=== PATIENT | male | born 1940 | race Caucasian/White ===

== ENCOUNTER → 2016-10-11 | Outpatient (CLI) | payer OTHER ==
[2016-10-11 12:57] LABS: BASO % 0.8 %; BASO ABS # 0.05 K/uL (0-0.2); COMPLETE YES; EOS % 2.4 %; HEMATOCRIT 46.3 % (42-52); LYMPH % 31.2 %; LYMPH ABS # 1.92 K/uL (1.2-3.4); MEAN CORPUSCULAR HGB CONC 35.9 g/dl (32-36); MEAN PLATELET VOLUME 10.6 fL (7.4-10.4); MONO % 11.2 %; NEUT % 54.4 %; PLATELET COUNT 232 K/uL (130-400); RED BLOOD COUNT 5.03 M/uL (4.7-6.1); WHITE BLOOD COUNT 6.15 K/uL (4.8-10.8)
[2016-10-11 13:34] LABS: ALT/SGPT 34 U/L (12-78); AST/SGOT 26 U/L (15-37); BLOOD UREA NITROGEN 20 mg/dl (7-18); BUN/CREATININE RATIO 19.8 (10-20); CALCIUM 9.3 mg/dl (8.5-10.1); CARBON DIOXIDE 27 mmol/L (21-32); CHLORIDE 106 mmol/L (98-107); GLUCOSE 100 mg/dl (70-99); POTASSIUM 4.3 mmol/L (3.5-5.1); SODIUM 139 mmol/L (136-145)
[2016-10-11 13:41] LABS: ALB/GLOB RATIO 1.1 (0.9-2); ALKALINE PHOSPHATASE 45 U/L (45-117); CHOLESTEROL 181 mg/dl (0-200); CHOLESTEROL/HDL RATIO 4.2; HDL CHOLESTEROL 43 mg/dl; LDL CHOLESTEROL CALCULATED 102 mg/dl; TRIGLYCERIDES 182 mg/dl (0-150); VERY LOW DENSITY LIPOPROT CALC 36 mg/dl
== END | disposition home or self-care (01) ==
LOC: C.LABMFLN 07:54
PROVIDERS: ATTEND Family Medicine
DX: I10 Essential (primary) hypertension (principal); E78.5 Hyperlipidemia, unspecified

== ENCOUNTER → 2017-04-03 | Outpatient (CLI) | payer OTHER | END | disposition home or self-care (01) | LOC: C.PATHSPEC 16:36 | PROVIDERS: ATTEND Dermatology | DX: L81.4 Other melanin hyperpigmentation (principal); L57.0 Actinic keratosis; C44.619 Basal cell carcinoma of skin of left upper limb, including shoulder ==

== ENCOUNTER → 2017-10-03 | Outpatient (CLI) | payer OTHER | END | disposition home or self-care (01) | LOC: C.PATHSPEC 16:47 | PROVIDERS: ATTEND Dermatology | DX: B07.9 Viral wart, unspecified (principal) ==

== ENCOUNTER → 2017-10-08 | Outpatient (CLI) | payer OTHER ==
[2017-10-08 12:51] LABS: BASO % 0.2 %; BASO ABS # 0.01 K/uL (0-0.2); EOS % 1.4 %; EOS ABS # 0.07 K/uL (0-0.5); HEMATOCRIT 44.6 % (42-52); HEMOGLOBIN 16.3 g/dL (14.0-18.0); IG# 0.01 K/uL (0.00-0.02); LYMPH % 31.5 %; MEAN CELL VOLUME 93.1 fL (80-100); MEAN CORPUSCULAR HGB CONC 36.5 g/dl (32-36); MEAN PLATELET VOLUME 10.6 fL (7.4-10.4); MONO % 13.2 %; MONO ABS # 0.67 K/uL (0.11-0.59); NEUT % 53.5 %; NEUT ABS # 2.72 K/uL (1.4-6.5); PLATELET COUNT 212 K/uL (130-400); RED CELL DISTRIBUTION WIDTH CV 12.4 % (11.5-14.5); RED CELL DISTRIBUTION WIDTH SD 41.6 fL (36.4-46.3); WHITE BLOOD COUNT 5.08 K/uL (4.8-10.8)
[2017-10-08 14:29] LABS: ALBUMIN 3.6 gm/dl (3.4-5.0); ALT/SGPT 36 U/L (12-78); AST/SGOT 34 U/L (15-37); BLOOD UREA NITROGEN 20 mg/dl (7-18); CALCIUM 8.7 mg/dl (8.5-10.1); CARBON DIOXIDE 26 mmol/L (21-32); CREATININE 1.08 mg/dl (0.60-1.40); GLUCOSE 97 mg/dl (70-99); POTASSIUM 3.8 mmol/L (3.5-5.1); SODIUM 133 mmol/L (136-145)
[2017-10-08 14:40] LABS: ALKALINE PHOSPHATASE 52 U/L (45-117); CHOLESTEROL 104 mg/dl (0-200); LDL CHOLESTEROL CALCULATED 50 mg/dl; TOTAL PROTEIN 7.7 gm/dl (6.4-8.2)
== END | disposition home or self-care (01) ==
LOC: C.LABMFLN 08:34
PROVIDERS: ATTEND Family Medicine
DX: I10 Essential (primary) hypertension (principal); E78.5 Hyperlipidemia, unspecified

== ENCOUNTER 2020-10-18 08:03 | Inpatient (IN) ==
--- NOTE | 2020-09-30 15:10 | PAT Medication Instructions ---
Medication Instructions Date of Service September 30, 2020 Home Medications Medication Instructions Recorded atenolol 50 mg tablet 50 mg PO DAILY #90 tab 09/22/19 triamterene 37.5 0.5 tab PO DAILY #45 tab 11/12/19 mg-hydrochlorothiazide 25 mg tablet doxycycline hyclate 50 mg capsule 50 mg PO Q OTHER DAY #45 cap 05/03/20 gabapentin 400 mg capsule 400 mg PO TID #270 cap 09/30/20 atenolol 50 mg tablet 50 mg PO DAILY triamterene 37.5 mg-hydrochlorothiazide 25 mg tablet 0.5 tab PO DAILY doxycycline hyclate 50 mg capsule 50 mg PO Q OTHER DAY gabapentin 400 mg capsule 400 mg PO TID multivitamin 1 tab PO QAM DO NOT take the morning of surgery triamterene 37.5 mg-hydrochlorothiazide 25 mg tablet 0.5 tab PO DAILY doxycycline hyclate 50 mg capsule 50 mg PO Q OTHER DAY multivitamin 1 tab PO QAM Take morning of surgery With a small sip of water, OTHERWISE NOTHING TO EAT OR DRINK AFTER MIDNIGHT: atenolol 50 mg tablet 50 mg PO DAILY gabapentin 400 mg capsule 400 mg PO TID Take evening before surgery gabapentin 400 mg capsule 400 mg PO TID Other Notes If you have any questions please call us at [phone] or [phone] or [phone] or [phone]
--- NOTE | 2020-10-04 12:56 | Anesthesiology Consultation ---
Date of Service October 04, 2020 Assessment & Plan (1) Encounter for pre-operative examination: COVID Status: As of 10/04 assessment, patient denies travel to endemic area, known exposure/sick contacts, or symptoms of COVID19. Patient instructed that they and their household members must follow strict social distancing guidelines, wear a mask in public and avoid travel/events/gatherings for 14 days prior to surgery. Preoperative COVID19 testing to be completed prior to surgery per surgeon's arrangements (pt aware). Patient made aware to self-isolate as much as possible between COVID testing and surgery. Pt is fully vaccinated. Chart Review Chart Review: Acceptable Risk for Surgery (pending cardiology clearance/echo) and Patient seen in Pre Admission Testing Teaching & Discussion Instructed NPO after midnight before surgery, except medications with 15 cc of water. Medication instructions provided according to the PAT guidelines. History Surgery Operation Date: 10/18/20 12:25 Proposed Procedures p L3-S1 Decompression Fusion, Spinal Cord Monitoring - Yonathan Dumont, Height/Weight Height: 5 ft 10 in Weight: 114.2 kg Allergies Allergy/AdvReac Type Severity Reaction Status Date / Time No Known Drug Allergies Allergy Uncoded 09/30/20 11:30 Medications Home Medications Medication Instructions Recorded Confirmed Last Taken atenolol 50 mg tablet 50 mg PO DAILY #90 tab 09/22/19 09/30/20 Unknown triamterene 37.5 0.5 tab PO DAILY #45 tab 11/12/19 09/30/20 Unknown mg-hydrochlorothiazide 25 mg tablet doxycycline hyclate 50 mg capsule 50 mg PO Q OTHER DAY #45 cap 05/03/20 09/30/20 Unknown gabapentin 400 mg capsule 400 mg PO TID #270 cap 09/30/20 Unknown multivitamin 1 tab PO QAM 09/30/20 09/30/20 Unknown Past Medical History Medical History Acid reflux Ankylosing spondylitis Was previously on medication but discontinued when symptoms improved, has not been treated for 30yrs. Arthritis Benign essential hypertension Erectile dysfunction History of basal cell carcinoma Hx of glaucoma LBBB (left bundle branch block) Lumbar stenosis with neurogenic claudication Obstructive sleep apnea NO DEVICE CURRENTLY USED Rosacea Exercise / Class Metabolic Activity II 4-5 Yardwork/Stairs/Walk up hill (Does stairs at work, no limiting dyspnea, no chest pain, limited by leg pain/weakness) Past Family History Family History Sister Colorectal cancer Father Coronary heart disease Brother Esophageal cancer Family history of diabetes mellitus Other No family history of adverse response to anesthesia Past Surgical History Surgical History History of carpal tunnel release RT/LEFT History of cataract surgery RT/LEFT History of colonoscopy History of tooth extraction Hx of vasectomy Past Anesthesia History No Hx of Anesthesia Complications and No Family Hx of Anesthesia Complications History of PONV No Hx of PONV and No Hx of Motion Sickness Social History Smoking Status: Never smoker tobacco type: smokeless tobacco Do You Dip or Chew Tobacco: No (QUIT "YEARS AGO") Hx Alcohol Use: Yes alcohol intake frequency: holidays/special occasions only Hx Substance Use: No Review of Systems Pt denies any recent chest pain, shortness of breath, palpitations, cough, fever, URI, or uncontrolled acid reflux. Physical Exam Vital Signs BP: 162/90 P: 71bpm SPO2: 94% RA T: 98.0 F R: 16 ENMT Mouth: + dentures and + edentulous Thyromental Distance: > or= 3.5 Finger Breadths Mallampati Class: II Neck + thick neck; neck extension not limited Respiratory normal respiratory effort, lungs clear to auscultation + prolonged expiratory phase Cardiovascular RRR, no murmur, no edema Distant heart sounds. Testing Laboratory Results 10/04/20 13:08 10/04/20 13:08 PT 10.3 Seconds (9.0-12.0) 10/04/20 13:08 INR 1.0 (0.9-1.1) 10/04/20 13:08 APTT 28.5 Seconds (21.0-31.0) 10/04/20 13:08 Urine Color Yellow 10/04/20 13:08 Urine Appearance Clear (Clear) 10/04/20 13:08 Urine pH 6.0 (4.5-7.5) 10/04/20 13:08 Ur Specific Debary 1.017 (1.000-1.030) 10/04/20 13:08 Urine Protein Negative (Negative) 10/04/20 13:08 Urine Glucose (UA) Negative (Negative) 10/04/20 13:08 Urine Ketones Negative (Negative) 10/04/20 13:08 Urine Nitrite Negative (Negative) 10/04/20 13:08 Ur Leukocyte Esterase Negative (Negative) 10/04/20 13:08 Blood Type AB Positive 10/04/20 13:08 Antibody Screen NEGATIVE 10/04/20 13:08 Electrocardiogram Date: 10/04/20 Normal sinus rhythm at 69 bpm. Left bundle branch block. No previous EKGs on record. Patient denies CP/dizziness/SOB. Chest X-Ray Date: 10/04/20 Findings: + NAD
--- NOTE | 2020-10-04 13:44 | XRay Report ---
XR chest Pre-admission PA/Lat CLINICAL HISTORY: Preoperative chest COMPARISON STUDY: No previous studies for comparison. FINDINGS: The cardiac and mediastinal contours are normal. There is no evidence of focal pulmonary co nsolidation. There is no evidence of failure. No pleural effusions are visualized.[ IMPRESSION: No active disease in the chest. ACT 112: Negative or not required by law. Electronically signed by: Uli Stone M.D. 10/04/2020 1:42 PM
[2020-10-04 13:54] LABS: Basophils # (auto) 0.04 K/uL (0-0.2); Basophils % (auto) 0.6 %; Eosinophils # (auto) 0.11 K/uL (0-0.5); Eosinophils % (auto) 1.7 %; Hematocrit (blood only) 45.3 % (42-52); Hemoglobin 16.1 g/dL (14.0-18.0); Immature Granulocytes # (auto) 0.01 K/uL (0.00-0.02); Immature Granulocytes % (auto) 0.2 %; Lymphocytes # (auto) 1.93 K/uL (1.2-3.4); Lymphocytes % (auto) 30.1 %; Mean Corpuscular Hemoglobin 33.6 pg (25-34); Mean Corpuscular Hgb Conc 35.5 g/dL (32-36); Mean Corpuscular Volume 94.6 fL (80-100); Mean Platelet Volume 10.8 fL (7.4-10.4); Monocytes # (auto) 0.54 K/uL (0.11-0.59); Monocytes % (auto) 8.4 %; Neutrophils # (auto) 3.79 K/uL (1.4-6.5); Platelet Count 229 K/uL (130-400); RDW Coefficient of Variation 12.2 % (11.5-14.5); RDW Standard Deviation 41.5 fL (36.4-46.3); Red Blood Count 4.79 M/uL (4.7-6.1); White Blood Count 6.42 K/uL (4.8-10.8)
[2020-10-04 14:01] LABS: Appearance Urine Clear (Clear); Bilirubin Urine Negative (Negative); Blood Urine Negative (Negative); Color Urine Yellow; Glucose Urine UA Negative (Negative); Ketones Urine Negative (Negative); Leukocyte Esterase Urine Negative (Negative); Nitrite Urine Negative (Negative); Protein Urine Negative (Negative); Specific Gravity Urine 1.017 (1.000-1.030); Urobilinogen Urine Negative (Negative)
[2020-10-04 14:10] LABS: Partial Thromboplastin Ratio 1.1; Partial Thromboplastin Time 28.5 Seconds (21.0-31.0); Prothrombin Time 10.3 Seconds (9.0-12.0)
--- NOTE | 2020-10-04 14:47 | Electrocardiogram Report ---
Test Reason : Blood Pressure : / mmHG Vent. Rate : 069 BPM Atrial Rate : 069 BPM P-R Int : 202 ms QRS Dur : 156 ms QT Int : 466 ms P-R-T Axes : 072 066 045 degrees QTc Int : 499 ms Normal sinus rhythm Left bundle branch block Abnormal ECG No previous ECGs available Confirmed by Fernando Millan ([id number]) on 10/04/2020 2:46:48 PM Referred By: Yonathan Dumont Confirmed By:Fernando Millan
[2020-10-04 15:53] LABS: BUN Creatinine Ratio 19.9 (10-20); Calcium 8.9 mg/dl (8.5-10.1); Creatinine Clr Calc Pharmacy 68.2 ml/min; Est GFR (African American) 71.8; Est GFR (Non-African American) 61.9; Potassium 4.2 mmol/L (3.5-5.1)
[~2020-10-18 08:03] MED LIST: ACETAMINOPHEN 1000 MG/100 ML IV IV ONE; ACETAMINOPHEN 500 MG TAB PO SCH; CeleBREX 200 MG CAP PO SCH; GABAPENTIN 300 MG CAP PO SCH; LR 15ML/HR IV SCH; ceFAZolin 2000MG 2,000 MG/15 ML SYR IV SCH
--- NOTE | 2020-10-18 09:45 | History & Physical Bridge Note ---
Date of Service October 18, 2020 History & Physical Bridge Note I have examined the patient, reviewed the History & Physical and in the interval since the performance of the History & Physical I have noted the following changes of clinical significance: no changes noted
--- NOTE | 2020-10-18 09:46 | History & Physical Report ---
Date of Service October 18, 2020 Assessment & Plan (1) Neurogenic claudication due to lumbar spinal stenosis: Admission and Anticipated Discharge Date Admission Date: L3-S1 decompression fusion History of Present Illness Chief Complaint: Back and bilateral leg pain Primary Care Provider: Rosa Elena Mauro MD This is a 71-year-old male who presents with chronic persistent back and bilateral leg pain. After failing since course of nonoperative care is here for surgical invention. Allergies Allergy/AdvReac Type Severity Reaction Status Date / Time No Known Drug Allergies Allergy Uncoded 10/18/20 08:41 Home Medications Medication Instructions Recorded Confirmed Type atenolol 50 mg tablet 50 mg PO DAILY #90 tab 09/22/19 10/18/20 Rx doxycycline hyclate 50 mg capsule 50 mg PO Q OTHER DAY #45 cap 05/03/20 10/18/20 Rx gabapentin 400 mg capsule 400 mg PO TID #270 cap 09/30/20 10/18/20 Rx multivitamin 1 tab PO QAM 09/30/20 10/18/20 History psyllium [Metamucil] 1 packet 10/18/20 History triamterene-hydrochlorothiazid 0.5 tab PO DAILY 10/18/20 10/18/20 History [Maxzide-25mg] Past Med/Surg History Medical History Acid reflux Ankylosing spondylitis Arthritis Benign essential hypertension Erectile dysfunction History of basal cell carcinoma Hx of glaucoma LBBB (left bundle branch block) Lumbar stenosis with neurogenic claudication Obstructive sleep apnea Rosacea Surgical History History of carpal tunnel release History of cataract surgery History of colonoscopy History of tooth extraction Hx of vasectomy Family History Sister Colorectal cancer Father Coronary heart disease Brother Esophageal cancer Family history of diabetes mellitus Other No family history of adverse response to anesthesia Social History Smoking Status: Never smoker Second Hand Exposure: No; Do You Dip or Chew Tobacco: No (QUIT "YEARS AGO"); Tobacco Cessation Education Requested by Patient: No Hx Alcohol Use: Yes Hx Substance Use: No Preferred Language: Divehi Bank Vault Clerk Required: No Beliefs That Will Affect Care: None marital status: Current Living Situation: Spouse current occupational status: retired Feels Safe at Home: Yes Safety Concerns: Feels Safe At This Time Physical Activity Frequency: Does not Exercise Seatbelt Use: always Sunscreen Use: Yes Assistive Devices: Denture - Upper and Denture - Lower Physical Exam Physical Exam: Patient is alert and oriented Heart regular rhythm Lungs clear to auscultation Results & Data ([facility]) Vital Signs (Past 12 Hours) Vital Signs Temp Pulse Resp BP Pulse Ox 10/18/20 08:47 37.0 C 75 20 170/88 H 95
[2020-10-18] MEDS ORDERED: ATROPINE SULFATE 0.1 MG/ML 10ML SYR IV PRN (09:59)
[2020-10-18] MEDS ORDERED: fentaNYL citrate 100 MCG/2 ML VIAL IV PRN (09:59)
[2020-10-18] MEDS ORDERED: HYDROmorphone INJ 2 MG/ML SYR/VIAL IV PRN (09:59)
[2020-10-18] MEDS ORDERED: ONDANSETRON INJ 2 MG/ML 2 ML VIAL IV PRN ×2 (09:59→13:23)
[2020-10-18] MEDS ORDERED: ePHEDrine sulfate 50 MG/ML AMP IV PRN (09:59)
[2020-10-18] MEDS ORDERED: BUPIVACAINE/EPINEPHRINE 0.5% MPF 1:200,000 30 ML VIAL ONE (10:01)
[2020-10-18] MEDS ORDERED: BACITRACIN INJ 50,000 UNIT VIAL ONE (10:01)
[2020-10-18] MEDS ORDERED: MIDAZOLAM HCL 1 MG/ML 2ML VIAL ONE (10:06)
[2020-10-18] MEDS ORDERED: fentaNYL citrate 100 MCG/2 ML VIAL ONE (10:06)
[2020-10-18] MEDS ORDERED: PROPOFOL IV EMULSION 10 MG/ML 20 ML VIAL IV ONE (10:06)
[2020-10-18] MEDS ORDERED: HYDROmorphone INJ 2 MG/ML SYR/VIAL ONE (10:06)
[2020-10-18] MEDS ORDERED: NEOSTIGMINE METHYLSULFATE 1 MG/ML 10ML VIAL ONE (10:06)
[2020-10-18] MEDS ORDERED: SUCCINYLCHOLINE CHLORIDE 20 MG/ML 10 ML VIAL IV ONE (10:06)
[2020-10-18] MEDS ORDERED: PHENYLEPHRINE HCL 10 MG/ML VIAL ONE (10:06)
[2020-10-18] MEDS ORDERED: LIDOCAINE HCL 2% 2 ML VIAL/AMP(20MG/ML) INFIL ONE (10:06)
[2020-10-18] MEDS ORDERED: ePHEDrine sulfate 50 MG/ML AMP ONE (10:06)
[2020-10-18] MEDS ORDERED: DEXAMETHASONE SOD INJ 4 MG/ML VIAL ONE (10:06)
[2020-10-18] MEDS ORDERED: ONDANSETRON INJ 2 MG/ML 2 ML VIAL ONE (10:06)
[2020-10-18] MEDS ORDERED: GLYCOPYRROLATE 0.2 MG/ML VIAL ONE (10:06)
[2020-10-18] MEDS ORDERED: ePHEDrine sulfate 50 MG/ML SYR ONE (10:53)
[2020-10-18] MEDS ORDERED: METOCLOPRAMIDE HCL INJ 5 MG/ML 2 ML VIAL ONE (10:53)
[2020-10-18] MEDS ORDERED: PHENYLEPHRINE 100MCG/ML 5ML SYR ONE (10:53)
[2020-10-18] MEDS ORDERED: ROCURONIUM BROMIDE 10 MG/ML 5 ML VIAL IV ONE ×3 (10:59→11:53)
[2020-10-18] MEDS ORDERED: SODIUM CHLORIDE 0.9% INJ 10 ML VIAL ONE (11:28)
[2020-10-18] MEDS ORDERED: KETOROLAC 30 MG/ML VIAL ONE (12:48)
[2020-10-18] MEDS ORDERED: FLOSEAL HEMOSTATIC MATRIX 10ML TOP ONE (12:51)
--- NOTE | 2020-10-18 12:57 | Operative Report ---
Post Operative Report Pre & Post Diagnosis Operation Date: 10/18/20 10:05 Pre-Op Diagnosis: Spinal Stenosis, Lumbar Region with Neurogenic Claudication Post-Op Diagnosis: Spinal Stenosis, Lumbar Region with Neurogenic Claudication I identified the patient and participated in the time-out.: Yes Procedure Operation Date: 10/18/20 10:05 Actual Procedures #1 lumbar decompression bilateral medial facetectomies and foraminotomies L2-3, L3-4, L4-5 and L5-S1. #2 posterior spinal fusion L3-4, L4-5 and L5-S1. #3 placement posterior segmental instrumentation L3-S1. #4 interbody fusion L4-5 L5-S1. #5 placement peek cage 13 x 26 mm at L4-5 and 9 x 26 mm at L5-S1. #6 placement locally harvested morselized autograft in the posterior gutters. #7 placement infuse collagen sponge, master graft in the posterior lateral gutters and I factor in the interbody spaces at L4-5 L5-S1. Surgeon Yonathan Dumont, DO Woolen Suiting Shrinker Valeria Teresa Estimated Blood Loss 500 Findings See Below The patient is 5 foot 10 inches tall weighing over 113 kg with a BMI of 36. The patient's body habitus did contribute to technical difficulty requiring her deepest retractors longus instruments in order to perform his procedure. This had at least 50% increase to the operative time. Specimens None Indications This is a 79-year-old male who presents with above-mentioned diagnosis after failing stents course of nonoperative care is here for surgical invention. Description of Procedure Patient was met with identified informed consent obtained. Patient was then taken to the operative suite underwent an patient placed in a prone position on a Jose table top Zane frame. All bony prominences well-padded eyes inspected to ensure no external pressure placed upon the. This point the lumbar spine was prepped and draped in normal sterile fashion. Sharp dissection with the assistance of Bovie cartilage from down to and exposing the lamina and transverse processes of L3-L4-L5 and sacral ala bilaterally. From caudal cephalad fashion complete laminectomy L5 L4 L3 partial laminectomy of L2 was performed including bilateral medial facetectomies and foraminotomies addressing severe spinal stenosis. Pedicle screws were then placed in L3-L4-L5 and S1 levels bilaterally with assistance of fluoroscopy and appropriate sized angi placed. By way the transforaminal portion left complete discectomy of L5-S1 was performed endplates curetted to subcortical bleeding bone and a 9 x 26 mm peek cage filled with I factor tapped in position. Then proceeded L4-L5. By way of a transforaminal approach and left pleat discectomy performed endplates curetted to subcortically bone and a 13 x 26 mm peek cage filled with I factor tapped in position. The rods were then locked in final position bilaterally. The transverse processes of L3-L4-L5 and sacral ala burred to subcortical bleeding bone. Infuse collagen sponge master graft look autograft was placed in the posterior lateral gutters. 15 round MEE drain inserted. The incision was then closed with 1 Vicryl in the fascia 2-0 Vicryl subcutaneously and 4 Monocryl for final skin closure. Steri-Strip sterile dressings placed. Patient will continue PACU stable condition. Please note spinal cord monitoring was utilized at the procedure and no changes noted as the Valeria Teresa was present at the entire procedure involved the patient positioning complex portions of the surgery and final skin closure. I attest to the content of the Intraoperative Record and any orders documented therein. Any exceptions are noted below.
[2020-10-18] MEDS ORDERED: METOCLOPRAMIDE HCL INJ 5 MG/ML 2 ML VIAL IV PRN (13:23)
[2020-10-18] MEDS ORDERED: ONDANSETRON 4 MG OD TAB PO PRN (13:23)
[2020-10-18] MEDS ORDERED: LORazepam 0.5 MG/1 ML VIAL IV PRN (13:23)
[2020-10-18] MEDS ORDERED: ACETAMINOPHEN 1,000 MG/100 ML VIAL IV PRN (13:23)
[2020-10-18] MEDS ORDERED: PROMETHAZINE HCL 12.5 MG in SODIUM CHLORIDE 0.9% 50 ML IV PRN (13:23)
[2020-10-18] MEDS ORDERED: LORazepam 0.5 MG TAB PO PRN (13:23)
[2020-10-18] MEDS ORDERED: HYDROmorphone INJ 0.5 MG/0.5 ML SYR IV PRN (13:23)
[2020-10-18] MEDS ORDERED: DO NOT ADMINISTER PNEUMOCOCCAL VACCINE PRN (13:23)
[2020-10-18] MEDS ORDERED: HYDROmorphone INJ 1 MG/ML SYRINGE IV PRN (13:23)
[2020-10-18] MEDS ORDERED: traMADol HCL 50 MG TABLET PO PRN (13:23)
[2020-10-18] MEDS ORDERED: hydrOXYzine HCl 25 MG TAB PO PRN (13:23)
[2020-10-18] MEDS ORDERED: FAMOTIDINE 20 MG TAB PO PRN (13:23)
[2020-10-18] MEDS ORDERED: oxyCODONE HCL IR 5 MG TAB (IMMEDIATE RELEASE) PO PRN (13:23)
[2020-10-18] MEDS ORDERED: SOD PHOSPHATE/SOD BIPHOSPHATE ENEMA 132 ML BTL PR PRN (13:23)
[2020-10-18] MEDS ORDERED: diphenhydrAMINE Capsule 25 MG CAP PO PRN (13:23)
[2020-10-18] MEDS ORDERED: ACETAMINOPHEN 500 MG TAB PO PRN (13:23)
[2020-10-18] MEDS ORDERED: DO NOT ADMINISTER FLU VACCINE PRN (13:23)
[2020-10-18] MEDS ORDERED: MAGNESIUM HYDROXIDE SUSP 30 ML UDC PO PRN (13:23)
[2020-10-18] MEDS ORDERED: bisacodyL 10 MG SUPP PR PRN (13:23)
[2020-10-18] MEDS ORDERED: ALUMINUM/MAGNESIUM SUSP 30 ML UDC PO PRN (13:23)
[2020-10-18] MEDS ORDERED: NALOXONE HCL 0.4 MG/1 ML VIAL/CARP IV PRN (13:23)
--- NOTE | 2020-10-18 13:30 | Fluoroscopy Report ---
FL lumbar spine 2-3V CLINICAL HISTORY: L3-S1 DECOMPRESSION/FUSION/INTERBODY COMPARISON STUDY: None. FLUOROSCOPY TIME: 28 seconds. FLUOROSCOPIC IMAGES: 2 FINDINGS: Fluoroscopy was provided during L4-L5 and L5-S1 discectomies with interbody spacer placemen t. Posterior decompression is noted. There is bilateral pedicle screw fusion from L3 through S1 with interconnecting rods. Hardware is intact. IMPRESSION: Fluoroscopy provided during L4-L5 and L5-S1 discectomies with L3-S1 bilateral pedicle sc rew fusion. ACT 112: Negative or not required by law. Electronically signed by: Regis Zamora M.D. 10/18/2020 1:29 PM
--- NOTE | 2020-10-18 14:11 | Anesthesiology Progress Note ---
Date of Service October 18, 2020 Anesthesia Post Procedure Vital Signs Vital Signs: Temp Pulse Pulse Resp BP BP Pulse Ox 10/18/20 14:10 80 15 148/82 H 93 10/18/20 14:00 83 14 151/84 H 94 10/18/20 13:50 36.4 C L 84 13 140/78 94 10/18/20 13:40 83 12 149/78 H 96 10/18/20 13:30 94 H 12 159/81 H 95 10/18/20 13:20 82 8 L 134/66 93 10/18/20 13:13 36.2 C L 92 H 10 L 118/73 95 10/18/20 08:47 37.0 C 75 20 170/88 H 95 Pain Intensity Lower Back: Pain Intensity: 0 Transfer of Care Handoff Completed per policy Notes Mental Status: alert / awake / arousable Patient Amnestic to Procedure: Yes Nausea / Vomiting: adequately controlled Pain: adequately controlled Airway Patency, RR, SpO2: stable & adequate BP & HR: stable & adequate Hydration State: stable & adequate Anesthetic Complications: no major complications apparent
[2020-10-18] MEDS: SODIUM CHLORIDE 0.9% 1000ML 1,000 ML IV SCH ×2 (14:30→21:23)
[2020-10-18] MEDS: GABAPENTIN 400 MG CAP PO SCH ×2 (15:57→21:24)
[2020-10-18] MEDS: ceFAZolin 2000MG 2,000 MG/15 ML SYR IV SCH (18:14)
--- NOTE | 2020-10-18 19:00 | Consultation ---
Date of Consultation October 18, 2020 Assessment & Plan (1) Neurogenic claudication due to lumbar spinal stenosis: s/p decompression / fusion of L3-S1 by Dr Dumont today. EBL ~500cc. Check CBC, BMP, mag in am. Defer pain meds, IV fluids, etc to primary orthopedic team. Neuro exam stable post-op. (2) HTN (hypertension): Typically takes atenolol and triamterene/HCTZ at home. Hold latter for now; check BMP in am. If BMP stable tomorrow can resume diuretic. Check mag level as well. (3) LBBB (left bundle branch block): Found incidentally pre-operatively. [place] [facility] Echo wnl. Stress test negative. No evidence of ischemic heart disease. (4) Obesity (BMI 30-39.9): BMI 36 (5) Hyperlipidemia: not on meds for such (6) Gastro-esophageal reflux disease without esophagitis: not on meds at this time (7) Ankylosing spondylitis: long-standing, quiescent not on dedicated meds for such (8) Obstructive sleep apnea: not on CPAP or BIPAP for such watch for signs/symptoms of CO2 retention post-op Thank you for this consult. We will follow with you. History of Present Illness Requesting Physician: Yonathan Dumont DO Reason for Consultation: post-op medical management Attending Physician: Yonathan Dumont DO History of Present Illness 79yo male with history of lumbar spinal stenosis, HTN, obesity, JESS, and ankylosing spondylitis presented today for decompression/fusion of L3-S1 by Dr Dumont. I saw the patient post-op on the orthopedic floor and he was resting comfortably. He reported worsening b/l buttock and lower extremity pain/numbness for some time unresponsive to pain meds, neuropathic medication (gabapentin), and epidural lumbar injections. Post-op he denied any chest pain, dyspnea, nausea, vomiting or abdominal pain. He has been able to eat/drink since the surgery without issue. Operative note indicates about 500cc of blood loss. Allergies Allergy/AdvReac Type Severity Reaction Status Date / Time No Known Drug Allergies Allergy Unknown Verified 10/18/20 10:01 Home Medications Medication Instructions Recorded Confirmed Type atenolol 50 mg tablet 50 mg PO DAILY #90 tab 09/22/19 10/18/20 Rx doxycycline hyclate 50 mg capsule 50 mg PO Q OTHER DAY #45 cap 05/03/20 10/18/20 Rx gabapentin 400 mg capsule 400 mg PO TID #270 cap 09/30/20 10/18/20 Rx multivitamin 1 tab PO QAM 09/30/20 10/18/20 History psyllium [Metamucil] 1 packet 10/18/20 History triamterene-hydrochlorothiazid 0.5 tab PO DAILY 10/18/20 10/18/20 History [Maxzide-25mg] Patient History Medical History Acid reflux Ankylosing spondylitis Was previously on medication but discontinued when symptoms improved, has not been treated for 30yrs. Arthritis Benign essential hypertension Erectile dysfunction History of basal cell carcinoma Hx of glaucoma LBBB (left bundle branch block) Lumbar stenosis with neurogenic claudication Obstructive sleep apnea NO DEVICE CURRENTLY USED Rosacea Surgical History History of carpal tunnel release RT/LEFT History of cataract surgery RT/LEFT History of colonoscopy History of tooth extraction Hx of vasectomy Family History (Updated 10/18/20 @ 18:59 by Ahmet Smith) Sister Colorectal cancer Father Coronary heart disease Cancer Brother Esophageal cancer Mother Stroke Other Diabetes No family history of adverse response to anesthesia Social History (Updated 10/18/20 @ 18:59 by Ahmet Smith) Smoking Status: Never smoker Second Hand Exposure: No; Do You Dip or Chew Tobacco: No (QUIT "YEARS AGO"); Tobacco Cessation Education Requested by Patient: No Hx Alcohol Use: Yes Alcohol Intake Frequency: Monthly or Less Hx Substance Use: No Preferred Language: Barbadian Clinical Interviewer Required: No Beliefs That Will Affect Care: None marital status: Current Living Situation: Spouse current occupational status: retired current occupation: shuttle truck driver How many Children do You have: 2 How many Children do You have Comment: step-children Feels Safe at Home: Yes Safety Concerns: Feels Safe At This Time Physical Activity Frequency: Does not Exercise Seatbelt Use: always Sunscreen Use: Yes Assistive Devices: Glasses, Oxygen - at Night and Walker Review of Systems Constitutional: + weight gain; no fever, no chills and no anorexia Eyes: no worsening vision Ear, Nose, Mouth, Throat: no nasal congestion, no sore throat and no dysphagia Respiratory: no cough and no dyspnea Cardiovascular: no chest pain Gastrointestinal: no abdominal pain, no nausea, no vomiting and no fecal incontinence Genitourinary: no urinary incontinence Musculoskeletal: + back pain Integumentary: no rash Neurologic: as per Subjective / HPI, + paresthesia and + radiating pain Psychiatric: no depression Endocrine: denies diabetes Hematologic / Lymphatic: no easy bleeding Physical Exam Constitutional: + obese; no acute distress and no altered mental status Eyes: pupils irregular b/l but reactive ENMT: Mouth: + dry oral mucous membranes Neck: trachea midline, no thyromegaly Respiratory: normal respiratory effort, lungs clear to auscultation Cardiovascular: Rate/Rhythm: regular rate and regular rhythm Heart Sounds: normal S1 and normal S2; no murmur Vessels: posterior tibial pulses present and dorsalis pedis pulses present; no JVD Extremities: no edema Gastrointestinal (Abdomen): normal bowel sounds, soft, nontender, no hepatosplenomegaly Inspection/Auscultation: + abdomen distended (Minimal ) Musculoskeletal: no cyanosis or clubbing, extremities motor strength 5/5 Skin: no rashes, warm and dry Neurologic: deep tendon reflexes 2+ bilaterally and moves all extremities Psychiatric: A+Ox3, euthymic affect Genitourinary: butcher in place Lymphatic: no cervical lymphadenopathy Results & Data ([facility]) Vital Signs (Past 12 Hours) Vital Signs Temp Pulse Pulse Pulse Resp BP BP 10/18/20 17:15 36.3 C L 81 18 124/73 10/18/20 16:15 36.2 C L 88 18 138/68 10/18/20 15:15 81 18 150/72 H 10/18/20 14:45 81 16 160/83 H 10/18/20 14:10 80 15 148/82 H 10/18/20 14:00 83 14 151/84 H 10/18/20 13:50 36.4 C L 84 13 140/78 10/18/20 13:40 83 12 149/78 H 10/18/20 13:30 94 H 12 159/81 H 10/18/20 13:20 82 8 L 134/66 10/18/20 13:13 36.2 C L 92 H 10 L 118/73 10/18/20 08:47 37.0 C 75 20 170/88 H Pulse Ox 10/18/20 17:15 93 10/18/20 16:15 93 10/18/20 15:15 93 10/18/20 14:45 93 10/18/20 14:10 93 10/18/20 14:00 94 10/18/20 13:50 94 10/18/20 13:40 96 10/18/20 13:30 95 10/18/20 13:20 93 10/18/20 13:13 95 10/18/20 08:47 95 Laboratory Results preop labs 4/5 wnl preop COVID testing negative preop cxr negative preop EKG with LBBB preop nuclear stress test negative PG Care Time/CCT Total # of Minutes Spent Total Time Spent with Patient: Total time spent is greater than 50% in coordination of care (as documented) at patient's floor/unit and/or counseling patient: Coding Level of Care Code 70739 Subseq Hosp Care Lvl 3 Diagnoses Neurogenic claudication due to lumbar spinal stenosis M48.062 HTN (hypertension) I10 LBBB (left bundle branch block) I44.7 Obesity (BMI 30-39.9) E66.9 Hyperlipidemia E78.2 Hyperlipidemia type: moderate mixed hyperlipidemia not requiring statin therapy Gastro-esophageal reflux disease without esophagitis K21.9 Ankylosing spondylitis M45.9 Obstructive sleep apnea G47.33 (1) Hyperlipidemia Hyperlipidemia type: moderate mixed hyperlipidemia not requiring statin therapy Qualified Code(s): E78.2 - Mixed hyperlipidemia
[2020-10-18] MEDS: DOCUSATE SODIUM/SENNA 50/8.6MG TAB PO SCH (21:24)
[2020-10-19] MEDS: ceFAZolin 2000MG 2,000 MG/15 ML SYR IV SCH (02:14)
[2020-10-19] MEDS ORDERED: COUGH DROP (SUGAR FREE) LOZ 24 LOZ/1 BOX BUCCAL ONE (02:17)
[2020-10-19] MEDS: POLYETHYLENE (MIRALAX) 17 GM PACK PO SCH ×4 (05:51→23:09)
[2020-10-19] MEDS: GABAPENTIN 400 MG CAP PO SCH ×3 (08:18→20:42)
[2020-10-19] MEDS: ATENOLOL 50 MG TABLET PO SCH (08:18)
[2020-10-19] MEDS: MULTIVITAMIN TAB PO SCH (08:18)
[2020-10-19 08:21] LABS: Hematocrit (blood only) 37.9 % (42-52); Hemoglobin 13.6 g/dL (14.0-18.0); Immature Granulocytes # (auto) 0.02 K/uL (0.00-0.02); Immature Granulocytes % (auto) 0.1 %; Lymphocytes # (auto) 0.86 K/uL (1.2-3.4); Lymphocytes % (auto) 6.1 %; Mean Corpuscular Hemoglobin 33.7 pg (25-34); Mean Corpuscular Hgb Conc 35.9 g/dL (32-36); Mean Platelet Volume 10.6 fL (7.4-10.4); Monocytes # (auto) 1.15 K/uL (0.11-0.59); Monocytes % (auto) 8.2 %; Neutrophils # (auto) 12.04 K/uL (1.4-6.5); Neutrophils % (auto) 85.6 %; Platelet Count 236 K/uL (130-400); RDW Coefficient of Variation 12.3 % (11.5-14.5); RDW Standard Deviation 42.4 fL (36.4-46.3); Red Blood Count 4.03 M/uL (4.7-6.1); White Blood Count 14.07 K/uL (4.8-10.8)
[2020-10-19 08:52] LABS: BUN Creatinine Ratio 19.7 (10-20); Calcium 8.6 mg/dl (8.5-10.1); Creatinine Clr Calc Pharmacy 82.7 ml/min; Est GFR (African American) 90.8; Est GFR (Non-African American) 78.4; Magnesium 2.2 mg/dl (1.8-2.4); Potassium 4.3 mmol/L (3.5-5.1)
--- NOTE | 2020-10-19 09:38 | Orthopedic Progress Note ---
Date of Service October 19, 2020 Assessment & Plan (1) Neurogenic claudication due to lumbar spinal stenosis: Admission and Anticipated Discharge Date Admission Date: October 18, 2020 This time we will continue physical therapy monitor his MEE operatively discharged home the next few days. Subjective Back pain controlled leg pain markedly improved Physical Exam Physical Exam: Patient is comfortable with good strength testing. Results & Data ([facility]) Vital Signs (Past 12 Hours) Vital Signs Temp Pulse Resp BP BP Pulse Ox 10/19/20 07:12 36.4 C L 76 16 145/73 H 97 10/19/20 03:09 36.4 C L 79 18 174/82 H 97 10/18/20 22:22 35.7 C L 74 16 146/74 H 97
[2020-10-19] MEDS ORDERED: SODIUM CHLORIDE 0.9% 1000ML 500 ML IV ONE (17:41)
[2020-10-19] MEDS ORDERED: TAMSULOSIN HCL 0.4 MG CAP PO ONE (17:41)
--- NOTE | 2020-10-19 19:15 | Hospitalist Progress Note ---
Date of Service October 19, 2020 Assessment & Plan (1) BPH loc w urin obs/LUTS: Patient having urinary issues s/p butcher discontinuation. By history he has moderate BPH symptoms on chronic basis. Thus, will start flomax 0.4mg daily. I spoke with staff and if patient continues to void small amounts of urine and/or is found to have significant urinary retention will perform I/O straight cath. (2) Acute blood loss anemia: Nearly 3 gram drop from baseline. Repeat H/H in am. Drain in place from operative site. Hold on Fe supplementation for now. (3) Neurogenic claudication due to lumbar spinal stenosis: POD #1 - s/p decompression / fusion of L3-S1 by Dr Dumont. Urinary issues s/p removal of butcher - see above. No flatus/stool but no symptoms of ileus (tolerating diet, no nausea/emesis, etc). Ambulate as tolerated. Bowel regimen. Original spinal stenosis symptoms (b/l leg pains, radicular pain, etc)) improved. (4) HTN (hypertension): Continue atenolol and triamterene/HCTZ. Resume latter since Cr and lytes are stable. (5) LBBB (left bundle branch block): Found incidentally pre-operatively. Sent to [facility]. Echo wnl. Stress test negative. No evidence of ischemic heart disease. Continues with no cardiopulmonary symptoms. (6) Obesity (BMI 30-39.9): BMI 36 (7) Hyperlipidemia: not on meds for such (8) Gastro-esophageal reflux disease without esophagitis: not on meds at this time (9) Ankylosing spondylitis: long-standing, quiescent not on dedicated meds for such (10) Obstructive sleep apnea: not on CPAP or BIPAP for such no signs of CO2 retention clinically Admission and Anticipated Discharge Date Admission Date: October 18, 2020 Subjective patient states that he had his butcher removed this am then he didn't void for much of the day finally voided a small amount (about 75cc per staff) late in the afternoon he endorses BPH symptoms on chronic basis - difficulty starting stream, starting/stopping of stream, weak stream, etc I had nursing staff bladder scan him and it was <200cc following the most recent void he denies any nausea/emesis no flatus or BM yet but he denies feeling bloated denies abd pain feels "sore" in his back but b/l buttock and leg pains are resolved numbness in feet is gone ambulating today and worked well with PT Review of Systems Constitutional: no fever Respiratory: no cough and no dyspnea Cardiovascular: no chest pain Gastrointestinal: no abdominal pain Genitourinary: + dysuria Physical Exam Constitutional: + obese; no acute distress and no altered mental status ENMT: external ear and nose normal, oropharynx normal Respiratory: normal respiratory effort, lungs clear to auscultation Cardiovascular: Rate/Rhythm: regular rate and regular rhythm Heart Sounds: normal S1 and normal S2; no murmur Vessels: posterior tibial pulses present and dorsalis pedis pulses present; no JVD Extremities: no edema Gastrointestinal (Abdomen): Inspection/Auscultation: + abdomen distended and + hypoactive bowel sounds Percussion/Palpation: abdomen nontender, no guarding and no hepatosplenomegaly Musculoskeletal: dressings intact to low back Neurologic: moves all extremities; no focal motor deficits Psychiatric: A+Ox3, euthymic affect Results & Data Results & Data ([facility]) Vital Signs (Past 12 Hours) Vital Signs Temp Pulse Resp BP BP Pulse Ox 10/19/20 15:00 36.8 C 76 18 125/71 96 10/19/20 11:18 81 16 138/85 100 10/19/20 10:57 36.5 C 74 16 153/70 H 95 Laboratory Results Laboratory Results - last 24 hr 10/19/20 10/19/20 07:54 07:54 WBC 14.07 H RBC 4.03 L Hgb 13.6 L Hct 37.9 L MCV 94.0 MCH 33.7 MCHC 35.9 RDW Std Deviation 42.4 RDW Coeff of Zoran 12.3 Plt Count 236 MPV 10.6 H Immature Gran % (Auto) 0.1 Neut % (Auto) 85.6 Lymph % (Auto) 6.1 Pender % (Auto) 8.2 Eos % (Auto) 0.0 Baso % (Auto) 0.0 Neut # (Auto) 12.04 H Lymph # (Auto) 0.86 L Pender # (Auto) 1.15 H Eos # (Auto) 0.00 Baso # (Auto) 0.00 Immature Gran # (Auto) 0.02 Sodium 136 Potassium 4.3 Chloride 105 Carbon Dioxide 26 Anion Gap 5.0 BUN 18 Creatinine 0.93 Est Cr Clr Drug Dosing 82.7 Est GFR ( Amer) 90.8 Est GFR (Non-Af Amer) 78.4 BUN/Creatinine Ratio 19.7 Glucose 112 H Calcium 8.6 Magnesium 2.2 PG Care Time/CCT Total # of Minutes Spent Total Time Spent with Patient: Total time spent is greater than 50% in coordination of care (as documented) at patient's floor/unit and/or counseling patient: Coding Level of Care Code 57409 Subseq Hosp Care Lvl 3 Diagnoses BPH loc w urin obs/LUTS N40.1 Acute blood loss anemia D62 Neurogenic claudication due to lumbar spinal stenosis M48.062 HTN (hypertension) I10 LBBB (left bundle branch block) I44.7 Obesity (BMI 30-39.9) E66.9 Hyperlipidemia E78.2 Hyperlipidemia type: moderate mixed hyperlipidemia not requiring statin therapy Gastro-esophageal reflux disease without esophagitis K21.9 Ankylosing spondylitis M45.9 Obstructive sleep apnea G47.33 (1) Hyperlipidemia Hyperlipidemia type: moderate mixed hyperlipidemia not requiring statin therapy Qualified Code(s): E78.2 - Mixed hyperlipidemia
[2020-10-19] MEDS: DOCUSATE SODIUM/SENNA 50/8.6MG TAB PO SCH (20:42)
[2020-10-20] MEDS: POLYETHYLENE (MIRALAX) 17 GM PACK PO SCH ×4 (05:34→23:02)
[2020-10-20] MEDS: ATENOLOL 50 MG TABLET PO SCH (08:35)
[2020-10-20] MEDS: TRIAMTERENE/HCTZ 37.5/25MG TAB PO SCH (08:35)
[2020-10-20] MEDS: MULTIVITAMIN TAB PO SCH (08:36)
[2020-10-20] MEDS: GABAPENTIN 400 MG CAP PO SCH ×3 (08:36→20:23)
[2020-10-20] MEDS: TAMSULOSIN HCL 0.4 MG CAP PO SCH (08:37)
[2020-10-20] MEDS: dexAMETHasone 8 MG in SYRINGE 0 ML IV SCH (08:37)
[2020-10-20 09:10] LABS: Hematocrit (blood only) 34.5 % (42-52); Hemoglobin 12.3 g/dL (14.0-18.0)
[2020-10-20 09:38] LABS: Creatinine Clr Calc Pharmacy 83.6 ml/min; Est GFR (Non-African American) 79.4; Potassium 4.6 mmol/L (3.5-5.1)
--- NOTE | 2020-10-20 12:10 | Orthopedic Progress Note ---
Date of Service October 20, 2020 Assessment & Plan (1) Neurogenic claudication due to lumbar spinal stenosis: Admission and Anticipated Discharge Date Admission Date: October 18, 2020 This time we will continue physical therapy advance his bowel regiment anticipate possible discharge home tomorrow. Subjective Back pain controlled leg pain markedly improved. Physical Exam Physical Exam: On exam patient is ambulating halls is good strength testing. Appears comfortable. Results & Data ([facility]) Vital Signs (Past 12 Hours) Vital Signs Temp Pulse Resp BP Pulse Ox 10/20/20 07:43 36.4 C L 64 18 121/69 97
[2020-10-20] MEDS ORDERED: bisacodyL 5 MG TABEC PO ONE (17:10)
[2020-10-20] MEDS: DOCUSATE SODIUM/SENNA 50/8.6MG TAB PO SCH (20:23)
--- NOTE | 2020-10-20 22:58 | Hospitalist Progress Note ---
Date of Service October 20, 2020 Assessment & Plan (1) BPH loc w urin obs/LUTS: acute/chronic. UOP improved. flomax initiated yesterday. has significant LUTS at home - would keep him on flomax at discharge. (2) Acute blood loss anemia: Nearly 4 gram drop from baseline. Drain in place from operative site. Hold on Fe supplementation for now until he moves his bowels. (3) Neurogenic claudication due to lumbar spinal stenosis: POD #2 - s/p decompression / fusion of L3-S1 by Dr Dumont. Ambulate as tolerated. Bowel regimen. Original spinal stenosis symptoms (b/l leg pains, radicular pain, etc)) improved. PT, OT. (4) HTN (hypertension): Continue atenolol and triamterene/HCTZ. Controlled. (5) LBBB (left bundle branch block): Found incidentally pre-operatively. Sent to [facility]. Echo wnl. Stress test negative. No evidence of ischemic heart disease. Continues with no cardiopulmonary symptoms. (6) Obesity (BMI 30-39.9): BMI 36 (7) Hyperlipidemia: not on meds for such (8) Gastro-esophageal reflux disease without esophagitis: not on meds at this time (9) Ankylosing spondylitis: long-standing, quiescent not on dedicated meds for such (10) Obstructive sleep apnea: not on CPAP or BIPAP for such no signs of CO2 retention clinically (11) Constipation: give dulcolax x 1 in addition to miralax he has active bowel sounds today and hopefully will move them soon doubt ileus, but low threshold to check KUB if GI symptoms persist add senna in am Admission and Anticipated Discharge Date Admission Date: October 18, 2020 Subjective patient's main complaint is that of lower abdominal discomfort, slight nausea/dyspepsia - but still able to eat/drink no vomiting passing flatus but no stool UOP improved; voiding better no leg pains mild lumbar back pain Review of Systems Constitutional: no fever and no chills Respiratory: no cough and no dyspnea Cardiovascular: no chest pain Physical Exam Constitutional: + obese; no acute distress and no altered mental status ENMT: external ear and nose normal, oropharynx normal Respiratory: normal respiratory effort, lungs clear to auscultation Cardiovascular: Rate/Rhythm: regular rate and regular rhythm Heart Sounds: normal S1 and normal S2; no murmur Vessels: posterior tibial pulses present and dorsalis pedis pulses present; no JVD Extremities: no edema Gastrointestinal (Abdomen): normal bowel sounds, soft, nontender, no hepatosplenomegaly Inspection/Auscultation: + abdomen distended Neurologic: deep tendon reflexes 2+ bilaterally and moves all extremities; no focal motor deficits Psychiatric: A+Ox3, euthymic affect Results & Data Results & Data ([facility]) Vital Signs (Past 12 Hours) Vital Signs Temp Pulse Resp BP Pulse Ox 10/20/20 22:55 36.6 C 74 16 148/72 H 97 Laboratory Results Laboratory Results - last 24 hr 10/20/20 10/20/20 08:45 08:45 Hgb 12.3 L Hct 34.5 L Sodium 134 L Potassium 4.6 Chloride 102 Carbon Dioxide 28 Anion Gap 4.0 BUN 23 H Creatinine 0.92 Est Cr Clr Drug Dosing 83.6 Est GFR ( Amer) 92.0 Est GFR (Non-Af Amer) 79.4 BUN/Creatinine Ratio 25.0 H Glucose 139 H Calcium 8.0 L PG Care Time/CCT Total # of Minutes Spent Total Time Spent with Patient: Total time spent is greater than 50% in coordination of care (as documented) at patient's floor/unit and/or counseling patient: Coding Level of Care Code 52191 Subseq Hosp Care Lvl 2 Diagnoses BPH loc w urin obs/LUTS N40.1 Acute blood loss anemia D62 Neurogenic claudication due to lumbar spinal stenosis M48.062 HTN (hypertension) I10 LBBB (left bundle branch block) I44.7 Obesity (BMI 30-39.9) E66.9 Hyperlipidemia E78.2 Hyperlipidemia type: moderate mixed hyperlipidemia not requiring statin therapy Gastro-esophageal reflux disease without esophagitis K21.9 Ankylosing spondylitis M45.9 Obstructive sleep apnea G47.33 Constipation K59.00 (1) Hyperlipidemia Hyperlipidemia type: moderate mixed hyperlipidemia not requiring statin therapy Qualified Code(s): E78.2 - Mixed hyperlipidemia
[2020-10-21] MEDS: POLYETHYLENE (MIRALAX) 17 GM PACK PO SCH (05:55)
[2020-10-21] MEDS: GABAPENTIN 400 MG CAP PO SCH (08:31)
[2020-10-21] MEDS: ATENOLOL 50 MG TABLET PO SCH (08:31)
[2020-10-21] MEDS: MULTIVITAMIN TAB PO SCH (08:32)
[2020-10-21] MEDS: dexAMETHasone 8 MG in SYRINGE 0 ML IV SCH (08:32)
[2020-10-21] MEDS: TRIAMTERENE/HCTZ 37.5/25MG TAB PO SCH (08:32)
[2020-10-21] MEDS: TAMSULOSIN HCL 0.4 MG CAP PO SCH (08:32)
[2020-10-21] MEDS ORDERED: SENNA 8.6 MG TAB PO SCH (09:00)
--- NOTE | 2020-10-21 12:21 | Discharge Summary ---
Date of Service October 21, 2020 Admission HPI Per Admitting Provider This is a 71-year-old male who presents with chronic persistent back and bilateral leg pain. After failing since course of nonoperative care is here for surgical invention. Principal Diagnosis Lumbar spinal stenosis with neurogenic claudication Discharge Data Allergies Allergy/AdvReac Type Severity Reaction Status Date / Time No Known Drug Allergies Allergy Unknown Verified 10/18/20 10:01 Consultations 10/18/20 13:23 Consult Hospitalist Routine Procedures Performed Operation Date: 10/18/20 10:05 Actual Procedures p L3-S1 Decompression Fusion with Insertion of Interbodies at L4-L5 and L5-S1, Application of Bone Morphogenetic Protein, Spinal Cord Monitoring(Not Applicable) - Yonathan Dumont DO Ordered Studies 10/18/20 10:05 FL lumbar spine 2-3V Routine Hospital Course (1) Neurogenic claudication due to lumbar spinal stenosis: Patient with multilevel lumbar decompression fusion tolerates well second orthopedic floor postoperative. Postop day 1 is up ambulating aggressive postop day #2 on postop day #3 pain was well controlled ambulating halls without difficulty subsequently discharged home. Discharge orders and instructions found in chart for further review. Total Time Total Time Spent Total Time Spent (In Minutes): 20 minutes Discharge Plan Discharge Items Patient Disposition: Home - Self-Care Reason For Visit: Spinal Stenosis, Lumbar Region with Neurogenic Cla Discharge Diagnosis: Lumbar spinal stenosis with neurogenic medication Activity: As commented below Non-emergency contact: Primary Care Provider Call non-emergency contact if: you have any medication questions Follow-up/Referrals: Rosa Elena Mauro MD [Primary Care Provider] - Diet: Regular Addtl Attending Provider Instructions: ACTIVITY RECOMMENDATIONS: SELF CARE INSTRUCTIONS AFTER THORACIC/LUMBAR FUSIONS 1. You may walk to your tolerance. It is good exercise for your legs and back. Expect some back and intermittent leg aches and pains. 2. You may perform "counter-top" level activities (make a sandwich, miky with a project, etc.). 3. No bending or lifting of more than 10 pounds or back twisting of any nature (roll like a log when turning in bed). 4. You may ride in a car for 20-30 minutes at a time. No driving until after your first visit with your doctor. 5. Frequent changes of position and restricting sitting to 30 minutes at a time will help limit the amount of back spasms and stiffness you may experience. 6. You may discontinue the use of ambulatory aids (cane, crutches, etc.) once your strength and confidence allow. 7. You may job printer the shower and let water strike your incision when you arrive home at least once daily. Do not take a tub bath, sit in a hot tub or go into a swimming pool until after your first recheck in the office. SPECIAL CARE INSTRUCTIONS: VERY IMPORTANT TO READ AND REVIEW A. Your surgical incision has been closed with a cosmetic suture under the skin that will dissolve in about 6 weeks. In 14 days, you can use a pair of clean scissors and cut the suture that is left outside of the skin at the ends of your incision. 1. The small skin tapes can be removed 7 days after surgery if they have not fallen off by that point. 2. You may keep the wound open to air as much as possible to promote healing after post-op day number 5 unless told otherwise by your doctor. 3. If you think the wound looks like it is becoming infected (redness or worsening drainage) and/or you are experiencing fever, chill or worsening back pain and muscle spasms, contact the office so that we may evaluate you as soon as possible. B. Complications are uncommon, but please contact us if you have any signs or symptoms of: 1. wound infection (fever higher than 102.5 degrees F, redness, separation of wound, drainage, or increasing pain from the incision) 2. blood clots in legs (pain, swelling, redness and warmth in legs) 3. urinary tract infection (fever higher than 102.5 degrees F, burning upon urination or increased frequency of urination) 4. nerve problems (inability to walk on your toes or heels, numbness, loss of bowel or bladder control) 5. any other symptoms that concern you C. Please call the office at if you have any concerns or questions about your operation or recovery. D. No smoking! Smoking drastically decreases the chance of a solid fusion. E. Do not take any anti-inflammatory medications (Indocin, Advil, Motrin, Aspirin, Naprosyn, etc.) as these may inhibit the chance of a solid fusion. Tylenol is okay to take for pain. MANAGING PAIN AFTER SPINAL SURGERY 1. Narcotic medication is intended for short-term use and will be provided for surgical pain. Surgical pain usually lasts for a period of 4-6 weeks. Narcotic medication includes Percocet, Vicodin, Darvocet, Tylenol #3 or Lortab. 2. Longer-term pain is more appropriately treated with non-narcotic medication such as Tylenol ES. 3. Muscle spasm is not appropriately treated with narcotics. Muscle relaxers such as Soma, Flexeril or Skelaxin can be used along with Tylenol ES. 4. Remember that we all live with some "aches and pains". This is not unusual or uncommon after an injury or as we get older. a. Back pain is expected and may include muscle spasms for 4 to 6 weeks after surgery. The pain should gradually improve. If the pain worsens for no apparent reason, please contact the office. b. Intermittent leg pain may also be experienced and should not be concerned about unless it worsens for no apparent reason. If so, please contact the office. 5. We will provide appropriate medication within the normal guidelines of their prescribed use. We will also be very cautious and aware of potential abuse and extended duration of patients' medication needs. a. Pain medications are for your comfort and to assist with sleep and rest so that the tissue can heal. They are not provided in order to return to normal activity and should not be used through the day. To do so or worsening pain at night can result from ongoing tissue damage and development of tolerance to the prescribed medicine. 6. Please allow 2-3 days to process refills. Prescriptions will not be mailed but must be picked up at the office. FOLLOW UP VISIT: Keep your scheduled follow-up appointment. Any questions, please call the office at . Pending Studies at Discharge: No Stand-Alone Forms: [facility] [employer], Smoking Cessation Medications and DC Order Prescriptions: New tramadol 50 mg tablet 50 mg PO Q6H PRN (Reason: pain, moderate) Qty: 30 RF: 0 oxycodone 5 mg tablet 5 mg PO Q6H PRN (Reason: pain, severe) Qty: 30 RF: 0 Continued atenolol 50 mg tablet 50 mg PO DAILY Qty: 90 RF: 3 gabapentin 400 mg capsule 400 mg PO TID Qty: 270 RF: 3 doxycycline hyclate 50 mg capsule 50 mg PO Q OTHER DAY Qty: 45 RF: 3 multivitamin Tablet 1 tab PO QAM RF: 0 triamterene-hydrochlorothiazid [Maxzide-25mg] 37.5-25 mg tablet 0.5 tab PO DAILY RF: 0 Metamucil Packet 1 packet RF: 0 Discharge Orders: Discharge Order (Routine); Ordered 10/21/20 Ordered By: Yonathan Dumont Admission Data Admit Date/Time: 10/18/20 13:23 Attending Provider: Yonathan Dumont Admit Provider: Yonathan Dumont Primary Care Provider: Rosa Elena Mauro Other Providers: Ahmet Smith
--- NOTE | 2020-10-21 13:39 | Hospitalist Progress Note ---
Date of Service October 21, 2020 Assessment & Plan (1) BPH loc w urin obs/LUTS: acute/chronic. UOP improved with flomax. has significant LUTS at home - would keep him on flomax. prescription sent to [facility] pharmacy. (2) Acute blood loss anemia: 2nd to surgery and post-op blood loss from drain. Nearly 4 gram drop from baseline. Start ferrous sulfate 325mg daily for 1-2 months. (3) Neurogenic claudication due to lumbar spinal stenosis: POD #3 - s/p decompression / fusion of L3-S1 by Dr Dumont. Doing well from surgery standpoint. to d/c home today. Pt, Ot after d/c. (4) HTN (hypertension): Continue atenolol and triamterene/HCTZ. Controlled. (5) LBBB (left bundle branch block): Found incidentally pre-operatively. Sent to [facility] Cardiology. Echo wnl. Stress test negative. No evidence of ischemic heart disease. Continues with no cardiopulmonary symptoms. (6) Obesity (BMI 30-39.9): BMI 36 (7) Hyperlipidemia: not on meds for such (8) Gastro-esophageal reflux disease without esophagitis: not on meds at this time (9) Ankylosing spondylitis: long-standing, quiescent not on dedicated meds for such (10) Obstructive sleep apnea: not on CPAP or BIPAP for such no signs of CO2 retention clinically (11) Constipation: improved resume once daily metamucil add senna or dulcolax on prn basis at home ok from medical standpoint to d/c home today Admission and Anticipated Discharge Date Admission Date: October 18, 2020 Subjective had 2 BMs this am pain in back is controlled no nausea no dyspnea eating ok voiding fine Review of Systems Constitutional: no fever and no chills Respiratory: no cough and no dyspnea Cardiovascular: no chest pain Gastrointestinal: no abdominal pain Physical Exam Constitutional: + obese; no acute distress and no altered mental status ENMT: external ear and nose normal, oropharynx normal Respiratory: normal respiratory effort, lungs clear to auscultation Cardiovascular: Rate/Rhythm: regular rate and regular rhythm Heart Sounds: normal S1 and normal S2; no murmur Vessels: posterior tibial pulses present and dorsalis pedis pulses present; no JVD Extremities: + edema (trace b/l ) Gastrointestinal (Abdomen): normal bowel sounds, soft, nontender, no hepatosplenomegaly Neurologic: moves all extremities Gait: no ataxic gait Psychiatric: A+Ox3, euthymic affect Results & Data Results & Data ([facility]) Vital Signs (Past 12 Hours) Vital Signs Temp Pulse Resp BP Pulse Ox 10/21/20 08:03 36.5 C 76 14 145/79 H 95 PG Care Time/CCT Total # of Minutes Spent Total Time Spent with Patient: Total time spent is greater than 50% in coordination of care (as documented) at patient's floor/unit and/or counseling patient: Coding Level of Care Code 96738 Subseq Hosp Care Lvl 3 Diagnoses BPH loc w urin obs/LUTS N40.1 Acute blood loss anemia D62 Neurogenic claudication due to lumbar spinal stenosis M48.062 HTN (hypertension) I10 LBBB (left bundle branch block) I44.7 Obesity (BMI 30-39.9) E66.9 Hyperlipidemia E78.2 Hyperlipidemia type: moderate mixed hyperlipidemia not requiring statin therapy Gastro-esophageal reflux disease without esophagitis K21.9 Ankylosing spondylitis M45.9 Obstructive sleep apnea G47.33 Constipation K59.00 (1) Hyperlipidemia Hyperlipidemia type: moderate mixed hyperlipidemia not requiring statin therapy Qualified Code(s): E78.2 - Mixed hyperlipidemia
== END 2020-10-21 16:36 | disposition home or self-care (01) | DRG 454 ==
LOC: ASU 08:03 → 3E 13:23